=== PATIENT | female | born 1970 | race Caucasian/White ===

== ENCOUNTER 2022-08-28 21:54 | Emergency (ER) | payer BC ==
[2022-08-28] MEDS ORDERED: FAMOTIDINE 20MG/2ML VIAL IV ONE (23:00)
[2022-08-28] MEDS ORDERED: METHYLPREDNISOLONE SOD SUCC 125 MG/2 ML VIAL IV ONE (23:00)
[2022-08-29 00:41] VITALS: BP 121/71
== END 2022-08-29 00:45 | disposition home or self-care (01) ==
LOC: ER 21:54
DX: T78.2XXA Anaphylactic shock, unspecified, initial encounter (principal)
CPT/HCPCS: 96374; 96375; 99284; J2930; J3490; Z7610